=== PATIENT | female | born 1955 | race Caucasian/White ===

== ENCOUNTER 2016-09-12 13:46 | Emergency (ER) | payer BC ==
[~2016-09-12 13:46] MED LIST: ACET500CAP PO; BIOTIN10 MG PO; BUM1 PO; EZFE 200200 MG PO; FISH-EPA1000 MG PO; FLEX PO; GRALISE PO; HYOMAX-FT0.125 MG PO; IMOD PO; INHALER; KLOR-CON M2020 MEQ PO; L20 PO; L40 PO; LOP25 PO; MOBIC15 MG PO; MOBIC7.5 PO; MULTIPLE VIT PO; NEUR300 PO; NEUR600 PO; NIACIN 500 PO; NORCO1 TA1 PO; P20 PO; PCET PO; PRILO PO; PRILOSEC40 MG PO; SUCR PO; ULTRAM ER100 MG PO; V5 PO; VITAMIN D1000 UNI1 PO; VITAMIN D31000 UNIT PO; VIVELLE SY0.025 MG/2 TOP; VIVELLE SY0.0375 MG/ TOP; VIVELLE-DOT0.1 MG TOP; ZOLOFT25 MG PO
== END 2016-09-12 14:22 | disposition home or self-care (01) ==
LOC: ER 13:46
DX: K08.89 Other specified disorders of teeth and supporting structures (principal); I10 Essential (primary) hypertension; Z88.2 Allergy status to sulfonamides; Z88.5 Allergy status to narcotic agent; Z91.040 Latex allergy status; Z79.899 Other long term (current) drug therapy
CPT/HCPCS: 99282

== ENCOUNTER 2016-10-04 12:58 | Day surgery (SDC) | payer BC ==
--- NOTE | ~2016-10-04 | EGD ---
EGD REPORT [facility] [address] [id number] NAME: TASIA BERRY : [birth year] STATUS : [facility] [place] [facility] PAT#: [id number] AGE: 61 ADM/REG DATE : 10/04/16 MR#: [id number] REPORT SERV DATE: 10/04/16 DICTATED BY: DONNIE MARLOW DATE: 10/04/16 REPORT STATUS : Draft TRANSCRIBED BY: [facility] DATE: 10/04/16 [facility] Center Patient Name: Tasia Berry Date of : 1955 Attending MD: DONNIE MARLOW MD Procedure Date No Time: 10/04/2016 Procedure: Upper GI endoscopy Indications: Dyspepsia, Dysphagia, Chronic cough Referring MD: MAYRA RUSH III, JASON GARRETT MD Medicines: Propofol per Anesthesia Complications: No immediate complications. Estimated blood loss: None. Procedure: Pre-Anesthesia Assessment: - After reviewing the risks and benefits, the patient was deemed in satisfactory condition to undergo the procedure. - Prior to the procedure, a History and Physical was performed, and patient medications and allergies were reviewed. The patient's tolerance of previous anesthesia was also reviewed. The risks and benefits of the procedure and the sedation options and risks were discussed with the patient. All questions were answered, and informed consent was obtained. Prior Anticoagulants: The patient has taken no previous anticoagulant or antiplatelet agents. ASA Grade Assessment: III - A patient with severe systemic disease. After reviewing the risks and benefits, the patient was deemed in satisfactory condition to undergo the procedure. After obtaining informed consent, the endoscope was passed under direct vision. Throughout the procedure, the patient's blood pressure, pulse, and oxygen saturations were monitored continuously. The GIF [id number] was introduced through the mouth, and advanced to the third part of duodenum. The upper GI endoscopy was accomplished without difficulty. The patient tolerated the procedure well. Findings: The examined esophagus was normal. Biopsies were taken with a cold forceps for histology. Estimated blood loss: none. The gastroesophageal junction was normal. A guidewire was placed and the scope was withdrawn. Dilation was performed with a Savary dilator with no resistance at 48 Fr. Estimated blood loss: none. Diffuse mild inflammation characterized by congestion (edema) and granularity was found in the gastric antrum. Biopsies were taken with a cold forceps for histology. Estimated blood loss: none. EGD REPORT [address] [address] NAME: TASIA BERRY : [birth year] STATUS : [facility]#: [id number] AGE: 61 ADM/REG DATE : 10/04/16 MR#: [id number] REPORT SERV DATE: 10/04/16 DICTATED BY: DONNIE MARLOW DATE: 10/04/16 REPORT STATUS : Draft TRANSCRIBED BY: [employer] DATE: 10/04/16 The gastroesophageal junction (on retroflexion) was normal. The examined duodenum was normal. Impression: - Normal esophagus. Biopsied. - Normal gastroesophageal junction. Dilated. - Gastritis. Biopsied. - Normal gastroesophageal junction. - Normal examined duodenum. - Non-erosive esophageal reflux (NERD) disease present. - IBS-D in the setting of fibromyalgia. - Morbid obesity. - Acute on chronic sinusitis. Recommendation: - Discharge patient to home (ambulatory). - Soft diet today then advance diet as tolerated. - Decrease excess weight. - Continue Prilosec (omeprazole) 40 mg twice daily before breakfast and supper. - Continue Carafate 1 gram four times daily. - Will arrange an ENT consult for abnormal findings on sinus CT scan. - Patient has a contact number available for emergencies. The signs and symptoms of potential delayed complications were discussed with the patient. Return to normal activities tomorrow. Written discharge instructions were provided to the patient. Procedure Code(s): --- Professional --- 89974, Esophagogastroduodenoscopy, flexible, transoral; with insertion of guide wire followed by passage of dilator(s) through esophagus over guide wire 22915, Esophagogastroduodenoscopy, flexible, transoral; with biopsy, single or multiple Diagnosis Code(s): --- Professional --- K29.70, Gastritis, unspecified, without bleeding K21.9, Gastro-esophageal reflux disease without esophagitis K30, Functional dyspepsia R13.10, Dysphagia, unspecified R05, Cough CPT copyright 2013 [employer]. All rights reserved. The codes documented in this report are preliminary and upon fire management technician review may be revised to meet current compliance requirements. EGD REPORT [facility] [address] [id number] NAME: TASIA BERRY : [birth year] STATUS : [facility]#: [id number] AGE: 61 ADM/REG DATE : 10/04/16 MR#: [id number] REPORT SERV DATE: 10/04/16 DICTATED BY: DONNIE MARLOW DATE: 10/04/16 REPORT STATUS : Draft TRANSCRIBED BY: [employer] DATE: 10/04/16 DONNIE MARLOW MD 10/04/2016 3:42 PM This report has been signed electronically. Number of Addenda: 0 Note Initiated On: 10/04/2016 3:14 PM Scope Withdrawal Time 0 hours 0 minutes 0 seconds [address] [id number]
== END 2016-10-04 23:59 | disposition home or self-care (01) ==
LOC: DMU 12:58
PROVIDERS: Internal Medicine Gastroenterology
PROC: 0D748ZZ Dilation of Esophagogastric Junction, Via Natural or Artificial Opening Endoscopic (ICD-10-PCS; 2016-10-04)
PROC: 0DB68ZX Excision of Stomach, Via Natural or Artificial Opening Endoscopic, Diagnostic (ICD-10-PCS; principal; 2016-10-04 14:15)
PROC: 0DB38ZX Excision of Lower Esophagus, Via Natural or Artificial Opening Endoscopic, Diagnostic (ICD-10-PCS; 2016-10-04 14:15)
DX: K29.50 Unspecified chronic gastritis without bleeding (principal); K21.9 Gastro-esophageal reflux disease without esophagitis; K30 Functional dyspepsia; I10 Essential (primary) hypertension; E66.01 Morbid (severe) obesity due to excess calories; K58.9 Irritable bowel syndrome, unspecified; R53.1 Weakness; Z88.2 Allergy status to sulfonamides; Z88.5 Allergy status to narcotic agent; Z91.040 Latex allergy status; Z79.891 Long term (current) use of opiate analgesic; Z79.899 Other long term (current) drug therapy; Z87.442 Personal history of urinary calculi; Z90.710 Acquired absence of both cervix and uterus; Z90.49 Acquired absence of other specified parts of digestive tract; Z98.890 Other specified postprocedural states
CPT/HCPCS: 88305